=== PATIENT | female | born 1970 | race Caucasian/White ===

== ENCOUNTER 2019-01-21 19:36 | Emergency (ER) | payer SELFPAY, OTHER | END 2019-01-22 00:51 | disposition home or self-care (01) | LOC: JER 01-22 00:51 ==

== ENCOUNTER 2021-11-10 07:08 | Emergency (ER) | payer OTHER ==
[2021-11-10 07:33] VITALS: BP 111/71; PULSE 89; TEMP 99.4; BMI 32.2
[2021-11-10] MEDS ORDERED: KETOROLAC TROMETHAMINE 30 MG/1 ML VIAL IM ONE (08:01)
[2021-11-10] MEDS ORDERED: ALBUTEROL SO4 2.5/IPRATROPIUM 0.5 INH SOL 3 ML VIAL.NEB. NEB ONE ×2 (08:01→08:04)
[2021-11-10] MEDS ORDERED: KETOROLAC TROMETHAMINE 30 MG/1 ML VIAL ONE (08:04)
== END 2021-11-10 10:00 | disposition home or self-care (01) ==
LOC: JER 07:08
PROC: 3E023NZ Introduction of Analgesics, Hypnotics, Sedatives into Muscle, Percutaneous Approach (ICD-10-PCS; principal; 2021-11-10)
PROC: 3E0F7GC Introduction of Other Therapeutic Substance into Respiratory Tract, Via Natural or Artificial Opening (ICD-10-PCS; 2021-11-10)
DX: B34.9 Viral infection, unspecified (principal)
CPT/HCPCS: 0241U-QW; 71046-TC-FY; 99284-25

== ENCOUNTER 2021-12-29 02:08 | Emergency (ER) | payer OTHER ==
[2021-12-29 02:47] VITALS: BP 126/68; PULSE 76; TEMP 98; BMI 34.2
[2021-12-29] MEDS ORDERED: IBUPROFEN 600 MG TABLET (FP) PO ONE ×2 (04:15→04:23)
[2021-12-29] MEDS ORDERED: CEPHALEXIN MONOHYDRATE 500 MG CAPSULE (UD) PO ONE (04:15)
[2021-12-29] MEDS ORDERED: CEPHALEXIN MONOHYDRATE 500 MG CAPSULE (UD) ONE (04:22)
[2021-12-29 05:00] LABS: EPI CELLS >36 /uL (0-25.1); HYALINE CASTS 1 /uL (0-3.1); URINE APPEARANCE CLEAR; URINE BILIRUBIN NEGATIVE (NEGATIVE); URINE COLOR DK YELLOW; URINE GLUCOSE (UA) NEGATIVE (NEGATIVE); URINE KETONE NEGATIVE (NEGATIVE); URINE LEUK ESTERASE 3+ (NEGATIVE); URINE NITRITE POSITIVE (NEGATIVE); URINE PROTEIN NEGATIVE (NEGATIVE); URINE RBC 8 /uL (0-23.9); URINE WBC 495 /uL (0-25.8)
[2021-12-29 08:53] LABS: URINE BACTERIA 453.6 /uL (0-1359)
== END 2021-12-29 05:44 | disposition home or self-care (01) ==
LOC: JER 02:08
DX: N30.90 Cystitis, unspecified without hematuria (principal)
CPT/HCPCS: 81003; 87086; 99283-25

== ENCOUNTER 2022-04-21 15:32 | Emergency (ER) | payer OTHER ==
[2022-04-21 16:32] VITALS: BP 128/76; PULSE 82; RESP 20; TEMP 98.4; BMI 34.2
[2022-04-21] MEDS ORDERED: FAMOTIDINE 20 MG/50 ML IVPB 20 MG/50 ML MG IVPB ONE (16:45)
[2022-04-21] MEDS ORDERED: SODIUM CHLORIDE 0.9% 500 ML INFUS.BAG IV ONE (16:45)
[2022-04-21] MEDS ORDERED: MAG HYDROX/AL HYDROX/SIMETH 30 ML UNIT-DOSE CUP PO ONE (16:46)
== END 2022-04-21 19:45 | disposition home or self-care (01) ==
LOC: JER 15:32
PROC: 3E033GC Introduction of Other Therapeutic Substance into Peripheral Vein, Percutaneous Approach (ICD-10-PCS; principal; 2022-04-21)
DX: K21.9 Gastro-esophageal reflux disease without esophagitis (principal)
CPT/HCPCS: 96374; 99284-25